=== PATIENT | male | born 1945 | race Caucasian/White ===

== ENCOUNTER → 2019-02-27 | Outpatient (CLI) | payer MEDICARE, BC ==
--- NOTE | 2019-02-27 17:23 | REP ---
REASON: Pain after trauma. COMPARISON: None The frontal view of the chest has been compared to prior two view exam of the chest of 03/03/2016. The frontal view of the chest is normal and unchanged from the prior exam. Four views of the right ribs showed no evidence of an acute fracture or destructive osseous lesion. Four views of the left ribs shows no evidence of an acute fracture or destructive osseous lesion.
== END ==
LOC: M CLY 12:54
PROVIDERS: ATTEND Physician Assistant
DX: R07.81 Pleurodynia (principal); W06.XXXA Fall from bed, initial encounter; Y92.003 Bedroom of unspecified non-institutional (private) residence as the place of occurrence of the external cause

== ENCOUNTER → 2019-04-01 | Outpatient (CLI) | payer MEDICARE, BC ==
--- NOTE | 2019-04-01 16:52 | REP ---
Left hand four views: There is mild osteoarthritis of the PIP and DIP articulations. 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 The MCP articulations and carpal articulations are otherwise unremarkable. Mineralization is normal. There are no calcifications. No fracture or dislocation. Impression: Osteoarthritis. Electronically Signed by Jay [email or web address] MD 04/01/2019 04:43 P
--- NOTE | 2019-04-02 08:09 | REP ---
REASON: Pain. PRIORS: None. Degenerative change is seen involving the left elbow with marginal osteophyte formation. There is no acute fracture, dislocation, or subluxation. There is no joint effusion. IMPRESSION: Chronic changes. Electronically Signed by Graham Morales DO 04/02/2019 10:02 A
--- NOTE | 2019-04-02 08:10 | REP ---
REASON: Shoulder pain. PRIORS: None. There is a large spur arising from the inferior surface of the acromion process projection into the subacromial space. There is no acute fracture, dislocation, or subluxation. IMPRESSION: Chronic changes. Electronically Signed by Graham Morales DO 04/02/2019 10:02 A
== END ==
LOC: M WUC 16:21
PROVIDERS: ATTEND Physician Assistant
DX: M19.022 Primary osteoarthritis, left elbow (principal); M19.042 Primary osteoarthritis, left hand; M25.712 Osteophyte, left shoulder; M25.512 Pain in left shoulder; M25.522 Pain in left elbow; M25.542 Pain in joints of left hand